=== PATIENT | female | born 1955 | race Caucasian/White ===

== ENCOUNTER 2018-07-05 16:31 | Emergency (ER) | payer SELFPAY ==
[~2018-07-05] VITALS: Ht 149.9 cm; Wt 80.0 kg
[2018-07-05] MEDS ORDERED: KETOROLAC 60MG/2ML VIAL IM ONE (21:30)
[2018-07-05 22:21] VITALS: BP 145/90
== END 2018-07-05 22:22 | disposition home or self-care (01) ==
LOC: ER 16:31
DX: S40.011A Contusion of right shoulder, initial encounter (principal); W01.0XXA Fall on same level from slipping, tripping and stumbling without subsequent striking against object, initial encounter; Y93.89 Activity, other specified; Y92.89 Other specified places as the place of occurrence of the external cause
CPT/HCPCS: 29240; 73030; 96372; 99283; J1885; A4565